=== PATIENT | male | born 1965 | race Caucasian/White ===

== ENCOUNTER → 2016-07-24 | Outpatient (CLI) | payer MEDICARE ==
[~2016-07-24] MED LIST: /PANT40TA; CEFT500T; CEPH500C PO; DICL500C PO; IBUPOTC PO; METF1000 PO; MICR8CAP PO; OMEP20CA3 PO; PERC5TAB6 PO; PRAV20TA2 PO; VICO5TAB; aleve
[2016-07-24 09:09] LABS: ALBUMIN 4.1 GM/DL (3.2-5.2); ALBUMIN/GLOBULIN RATIO 1.52 (1.00-1.93); ALKALINE PHOSPHATASE 51 U/L (45-117); ALT/SGPT 26 U/L (12-78); ANION GAP 5 MEQ/L (8-16); AST/SGOT 11 U/L (15-37); BILIRUBIN,TOTAL 0.4 MG/DL (0.2-1.0); BLOOD UREA NITROGEN 12 MG/DL (7-18); CALCIUM LEVEL 8.8 MG/DL (8.5-10.1); CARBON DIOXIDE LEVEL 29 MEQ/L (21-32); CHLORIDE LEVEL 107 MEQ/L (98-107); CHOLESTEROL LEVEL 163 MG/DL (<200); CREATININE FOR GFR 0.82 MG/DL (0.70-1.30); GLOMERULAR FILTRATION RATE > 60.0 (>56); GLUCOSE, FASTING 147 MG/DL (70-105); POTASSIUM SERUM 4.8 MEQ/L (3.5-5.1); SODIUM LEVEL 141 MEQ/L (136-145); TOTAL PROTEIN 6.8 GM/DL (6.4-8.2); TRIGLYCERIDES LEVEL 115 MG/DL (<150)
[2016-07-24 09:37] LABS: MEAN CORPUSCULAR VOLUME 91.2 fl (80.0-96.0); RED CELL DISTRIBUTION WIDTH 12.7 % (11.5-14.5); WHITE BLOOD COUNT 6.1 K/mm3 (4.0-10.0)
--- NOTE | 2016-07-25 21:51 | ECGEPIP ---
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
--- NOTE | 2016-07-29 10:14 | REP ---
Clinical: Anemia . Comparison: 10/24/2015 . Technique: PA and lateral. Findings: The mediastinum and cardiac silhouette are normal. The lung cordero are clear and without acute consolidation, effusion, or pneumothorax. The skeletal structures are intact and normal. Impression: 1. No acute cardiopulmonary process. Signed by Young Lora MD 07/29/2016 10:05 A
== END ==
LOC: M LAB 07:42
PROVIDERS: ATTEND Family Medicine
DX: J44.9 Chronic obstructive pulmonary disease, unspecified (principal); R53.83 Other fatigue; E11.9 Type 2 diabetes mellitus without complications; I45.9 Conduction disorder, unspecified

== ENCOUNTER → 2016-09-02 | Outpatient (CLI) | payer MEDICARE ==
[2016-09-02 08:42] LABS: BASO # 0.1 K/mm3 (0.0-0.2); EOS # 0.1 K/mm3 (0.0-0.50); LARGE UNSTAINED CELL # 0.2 K/mm3 (0.0-0.4); LARGE UNSTAINED CELL % 2.3 % (0.0-4.0); MEAN CORPUSCULAR HEMOGLOBIN 30.8 pg (27.0-33.0); MEAN CORPUSCULAR HGB CONC 32.9 g/dl (32.0-36.5); MEAN CORPUSCULAR VOLUME 93.6 fl (80.0-96.0); MONO # 0.4 K/mm3 (0.0-0.8); NEUTROPHILS # 3.7 K/mm3 (1.8-7.7); NEUTROPHILS % 58.7 % (36.0-66.0); PLATELET COUNT, AUTOMATED 168 k/mm3 (150-450); WHITE BLOOD COUNT 6.3 K/mm3 (4.0-10.0)
[2016-09-02 09:17] LABS: ANION GAP 6 MEQ/L (8-16); BLOOD UREA NITROGEN 14 MG/DL (7-18); CALCIUM LEVEL 8.9 MG/DL (8.5-10.1); CARBON DIOXIDE LEVEL 30 MEQ/L (21-32); CHLORIDE LEVEL 105 MEQ/L (98-107); CREATININE FOR GFR 0.82 MG/DL (0.70-1.30); GLOMERULAR FILTRATION RATE > 60.0 (>56); GLUCOSE, FASTING 160 MG/DL (70-105); POTASSIUM SERUM 4.5 MEQ/L (3.5-5.1); SODIUM LEVEL 141 MEQ/L (136-145)
[2016-09-02 09:32] LABS: INR 0.93
== END ==
LOC: M LAB 07:45
PROVIDERS: ATTEND Surgery Vascular Surgery
DX: Z01.818 Encounter for other preprocedural examination (principal); D69.8 Other specified hemorrhagic conditions

== ENCOUNTER → 2016-09-11 | Outpatient (REF) | payer MEDICARE ==
[2016-09-11 13:29] LABS: BLOOD UREA NITROGEN 13 MG/DL (7-18); CREATININE FOR GFR 0.89 MG/DL (0.70-1.30); GLOMERULAR FILTRATION RATE > 60.0 (>56)
== END ==
LOC: M LABDRWAD 12:24
PROVIDERS: ATTEND Surgery Vascular Surgery
DX: Z01.818 Encounter for other preprocedural examination (principal)

== ENCOUNTER → 2017-02-26 | Outpatient (REF) | payer MEDICARE ==
[~2017-02-26] MED LIST changes: -METF1000 PO; +METF10004 PO; +PERC5TAB12 PO; -PERC5TAB6 PO
[2017-02-26 13:46] LABS: MEAN CORPUSCULAR HEMOGLOBIN 30.4 pg (27.0-33.0); PLATELET COUNT, AUTOMATED 171 10^3/uL (150-450); RED CELL DISTRIBUTION WIDTH 13.4 % (11.5-14.5); WHITE BLOOD COUNT 6.6 10^3/uL (4.0-10.0)
[2017-02-26 14:23] LABS: ALKALINE PHOSPHATASE 54 U/L (45-117); ALT/SGPT 25 U/L (12-78); ANION GAP 8 MEQ/L (8-16); AST/SGOT 14 U/L (15-37); BLOOD UREA NITROGEN 9 MG/DL (7-18); CALCIUM LEVEL 9.1 MG/DL (8.5-10.1); CARBON DIOXIDE LEVEL 28 MEQ/L (21-32); CHLORIDE LEVEL 105 MEQ/L (98-107); CREATININE FOR GFR 0.83 MG/DL (0.70-1.30); GLOMERULAR FILTRATION RATE > 60.0 (>56); GLUCOSE, FASTING 157 MG/DL (70-105); POTASSIUM SERUM 4.6 MEQ/L (3.5-5.1); SODIUM LEVEL 141 MEQ/L (136-145)
[2017-02-26 14:24] LABS: ALBUMIN 4.3 GM/DL (3.2-5.2); ALBUMIN/GLOBULIN RATIO 1.54 (1.00-1.93); BILIRUBIN,TOTAL 0.5 MG/DL (0.2-1.0); CHOLESTEROL LEVEL 156 MG/DL (<200); TOTAL PROTEIN 7.1 GM/DL (6.4-8.2); TRIGLYCERIDES LEVEL 131 MG/DL (<150)
== END ==
LOC: M LABDRWAD 12:16
PROVIDERS: ATTEND Family Medicine
DX: I10 Essential (primary) hypertension (principal); E11.9 Type 2 diabetes mellitus without complications; R53.83 Other fatigue; Z79.899 Other long term (current) drug therapy; E55.9 Vitamin D deficiency, unspecified

== ENCOUNTER 2017-12-12 17:02 | Observation (INO) | payer MEDICARE ==
[2017-12-12] MEDS: ASPIRIN 81 MG CHEW TABLET PO ×2 (19:15)
[2017-12-12 19:30] LABS: HEMATOCRIT 34.3 % (42.0-52.0); HEMOGLOBIN 12.3 g/dl (13.5-17.5); MEAN CORPUSCULAR HEMOGLOBIN 32.4 pg (27.0-33.0); MEAN CORPUSCULAR HGB CONC 35.9 g/dl (32.0-36.5); MEAN CORPUSCULAR VOLUME 90.3 fl (80.0-96.0); PLATELET COUNT, AUTOMATED 150 10^3/uL (150-450); RED CELL DISTRIBUTION WIDTH 11.9 % (11.5-14.5); WHITE BLOOD COUNT 7.4 10^3/uL (4.0-10.0)
[2017-12-12 19:54] LABS: ANION GAP 7 MEQ/L (8-16); BLOOD UREA NITROGEN 12 MG/DL (7-18); CALCIUM LEVEL 8.3 MG/DL (8.5-10.1); CARBON DIOXIDE LEVEL 26 MEQ/L (21-32); CHLORIDE LEVEL 103 MEQ/L (98-107); CREATININE FOR GFR 0.97 MG/DL (0.70-1.30); GLOMERULAR FILTRATION RATE > 60.0 (>56); GLUCOSE, FASTING 131 MG/DL (70-100); POTASSIUM SERUM 4.2 MEQ/L (3.5-5.1); SODIUM LEVEL 136 MEQ/L (136-145)
[2017-12-12] MEDS: HumaLOG INSULIN (NovoLOG) PER UNIT SC (21:00)
[2017-12-12] MEDS ORDERED: IPRATROPIUM 0.5MG/ALBUTEROL 2.5MG INH SOL UD 3ML (DUONEB)(J7620) NEB (21:15)
[2017-12-12] MEDS ORDERED: DEXTROSE 50% 50 ML SYRINGE IV (21:30)
[2017-12-12] MEDS ORDERED: GLUCAGON FOR INJ 1 MG VIAL (J1610) SC (21:30)
[2017-12-12] MEDS ORDERED: GLUCOSE 4 GM CHEW TABLET PO (21:30)
[2017-12-13 00:47] LABS: BEDSIDE GLUCOSE 208 MG/DL (70-105)
[2017-12-13] MEDS: HumaLOG INSULIN (NovoLOG) PER UNIT SC (08:25)
[2017-12-13] MEDS: MULTIVITAMINS/MINERALS THERAP 1 TAB PO (08:25)
[2017-12-13] MEDS: ASPIRIN 81 MG ENTERIC TAB PO (08:25)
[2017-12-13] MEDS: OMEPRAZOLE 20 MG CAP PO (08:26)
[2017-12-13] MEDS: ENOXAPARIN 40 MG/0.4 ML SYRINGE (J1650) SC (08:26)
[2017-12-13] MEDS ORDERED: PRAVASTATIN 20 MG TAB PO (18:00)
== END 2017-12-13 10:50 | disposition home or self-care (01) ==
LOC: M ED 17:02 → M ED INP 21:10 → M PCU 22:56
DX: M21.332 Wrist drop, left wrist (principal); R53.1 Weakness; G56.32 Lesion of radial nerve, left upper limb; E11.9 Type 2 diabetes mellitus without complications; E78.4 Other hyperlipidemia; Z79.82 Long term (current) use of aspirin; I73.9 Peripheral vascular disease, unspecified; K21.9 Gastro-esophageal reflux disease without esophagitis; Z95.820 Peripheral vascular angioplasty status with implants and grafts; Z79.899 Other long term (current) drug therapy; Z79.84 Long term (current) use of oral hypoglycemic drugs
CPT/HCPCS: 70551

== ENCOUNTER → 2018-02-28 | Outpatient (CLI) | payer MEDICARE ==
[2018-02-28 13:34] LABS: HEMATOCRIT 44.4 % (42.0-52.0); HEMOGLOBIN 14.9 g/dl (13.5-17.5); MEAN CORPUSCULAR HGB CONC 33.6 g/dl (32.0-36.5); MEAN CORPUSCULAR VOLUME 92.5 fl (80.0-96.0); PLATELET COUNT, AUTOMATED 162 10^3/uL (150-450); RED CELL DISTRIBUTION WIDTH 12.3 % (11.5-14.5); WHITE BLOOD COUNT 6.9 10^3/uL (4.0-10.0)
[2018-02-28 13:52] LABS: ALBUMIN 4.1 GM/DL (3.2-5.2); ALBUMIN/GLOBULIN RATIO 1.28 (1.00-1.93); ALKALINE PHOSPHATASE 57 U/L (45-117); ALT/SGPT 24 U/L (12-78); ANION GAP 9 MEQ/L (8-16); AST/SGOT 21 U/L (7-37); BILIRUBIN,TOTAL 0.4 MG/DL (0.2-1.0); BLOOD UREA NITROGEN 12 MG/DL (7-18); CARBON DIOXIDE LEVEL 27 MEQ/L (21-32); CHLORIDE LEVEL 105 MEQ/L (98-107); CHOLESTEROL LEVEL 159 MG/DL (<200); CHOLESTEROL RISK RATIO 4.542 (<5); CREATININE FOR GFR 0.92 MG/DL (0.70-1.30); GLOMERULAR FILTRATION RATE > 60.0 (>56); GLUCOSE, FASTING 167 MG/DL (70-100); HDL CHOLESTEROL 35 MG/DL (>40); LDL CHOLESTEROL 74 MG/DL (<100); NON-HDL-C 124 MG/DL; POTASSIUM SERUM 4.7 MEQ/L (3.5-5.1); SODIUM LEVEL 141 MEQ/L (136-145); TOTAL PROTEIN 7.3 GM/DL (6.4-8.2); TRIGLYCERIDES LEVEL 252 MG/DL (<150)
[2018-02-28 14:04] LABS: ESTIMATED AVERAGE GLUCOSE 240 MG/DL (60-110)
[2018-03-02 10:01] LABS: TESTOSTERONE 473 NG/DL (241-827); TOTAL 25(OH) VITAMIN D 20.8 NG/ML (30.0-100.0)
== END ==
LOC: M LABDRWAD 08:39
DX: I10 Essential (primary) hypertension (principal); E11.9 Type 2 diabetes mellitus without complications; E03.9 Hypothyroidism, unspecified; E29.1 Testicular hypofunction
CPT/HCPCS: 84403

== ENCOUNTER → 2019-07-09 | Outpatient (CLI) | payer MEDICARE ==
[~2019-07-09] MED LIST changes: -/PANT40TA; +ASPI81TA85 PO; +CENTCHW4 PO; +OMEP1CAP73 PO; -OMEP20CA3 PO; +PROT1TAB2; +VITMTA PO
--- NOTE | 2019-07-09 10:20 | REP ---
LUMBOSACRAL SPINE: Five views of the lumbosacral spine performed. There is no compression fracture or malalignment with normal lumbar lordosis. There is moderate diffuse spurring. There is mild disc space narrowing and subchondral sclerosis at L3-4 and L4-5, with mild vacuum phenomenon at L4-5. There is sclerosis and spurring at the posterior facet joints diffusely, most significantly at L4-5 and L5-S1. Posterior elements are intact. There are diffuse vascular calcifications. IMPRESSION: Diffuse degenerative changes as above most significantly at L4-5 level. Electronically Signed by Klaus Aparicio MD 07/13/2019 03:20 P
== END ==
LOC: M RAD 08:01
PROVIDERS: ATTEND Family Medicine
DX: M54.5 Low back pain (principal)

== ENCOUNTER 2020-01-03 20:17 | Emergency (ER) | payer MEDICARE ==
[~2020-01-03] VITALS: Ht 195.6 cm; Wt 112.7 kg
[~2020-01-03 20:17] MED LIST changes: -ASPI81TA85 PO; +ASPI81TA86 PO
[2020-01-03] MEDS ORDERED: INSUHUMDS SC (20:33)
[2020-01-03] MEDS ORDERED: NOXI1TAB PO (20:33)
[2020-01-03] MEDS ORDERED: LANTINJ4 (20:33)
[2020-01-03 22:35] LABS: BASO % 0.3 % (0.0-1.0); EOS # 0.1 10^3/uL (0.0-0.5); EOS % 0.7 % (0.0-3.0); HEMATOCRIT 38.9 % (42.0-52.0); HEMOGLOBIN 13.6 g/dl (13.5-17.5); LYMPH # 1.3 10^3/uL (1.5-5.0); LYMPH % 15.3 % (24.0-44.0); MEAN CORPUSCULAR HEMOGLOBIN 31.6 pg (27.0-33.0); MEAN CORPUSCULAR VOLUME 90.5 fl (80.0-96.0); MONO # 0.7 10^3/uL (0.0-0.8); MONO % 8.6 % (0.0-5.0); NEUTROPHILS # 6.5 10^3/uL (1.5-8.5); NEUTROPHILS % 74.6 % (36.0-66.0); PLATELET COUNT, AUTOMATED 178 10^3/uL (150-450); WHITE BLOOD COUNT 8.7 10^3/uL (4.0-10.0)
[2020-01-03 22:47] LABS: ALBUMIN 3.8 GM/DL (3.2-5.2); ALT/SGPT 31 U/L (12-78); BILIRUBIN,DIRECT 0.2 MG/DL (0.0-0.2); BILIRUBIN,TOTAL 0.5 MG/DL (0.2-1.0); BLOOD UREA NITROGEN 12 MG/DL (7-18); CALCIUM LEVEL 8.9 MG/DL (8.5-10.1); CARBON DIOXIDE LEVEL 29 MEQ/L (21-32); CHLORIDE LEVEL 99 MEQ/L (98-107); GLOMERULAR FILTRATION RATE > 60.0 (>56); GLUCOSE, FASTING 158 MG/DL (70-100); LIPASE 245 U/L (73-393); POTASSIUM SERUM 4.3 MEQ/L (3.5-5.1); SODIUM LEVEL 132 MEQ/L (136-145); TOTAL PROTEIN 7.1 GM/DL (6.4-8.2)
[2020-01-03] MEDS ORDERED: FLEET OIL RETENTION ENEMA PR STA (23:10)
[2020-01-03] MEDS ORDERED: GASTROGRAFIN SOLUTION 30ML (Q9963) As Ordered ONE (23:43)
[2020-01-03] MEDS: GASTROGRAFIN SOLUTION 30ML PO SCH (23:56)
[2020-01-04] MEDS: GASTROGRAFIN SOLUTION 30ML PO SCH (00:22)
[2020-01-04] MEDS ORDERED: ISOVUE-370 76% 100ML VIAL As Ordered ONE (00:49)
--- NOTE | 2020-01-04 01:53 | REPVR ---
PROCEDURE INFORMATION: Exam: CT Abdomen And Pelvis With Contrast Exam date and time: 01/03/2020 11:16 PM Age: 54 years old Clinical indication: Abdominal pain; Generalized; Patient HX: No bm 7 days; Additional info: No bm x 7 days, lower abd pain TECHNIQUE: Imaging protocol: Computed tomography of the abdomen and pelvis with intravenous contrast. Radiation optimization: All CT scans at this facility use at least one of these dose optimization techniques: automated exposure control; mA and/or kV adjustment per patient size (includes targeted exams where dose is matched to clinical indication); or iterative reconstruction. Contrast material: ISO; Contrast volume: 100 ml; Contrast route: INTRAVENOUS (IV); Other contrast: Oral, GGRAPHIN, 600; COMPARISON: CR Abdomen,Flat Plate KUB 01/03/2020 8:45 PM FINDINGS: Lungs: Reticular fibrotic changes are present in the lung bases in subpleural location Liver: Liver appears normal with no focal abnormality. Gallbladder and bile ducts: Gallbladder is present and shows no evidence of gallstone. Pancreas: Pancreas appears normal. No focal mass or peripancreatic inflammation. Spleen: Spleen appears homogeneous without focal mass. Adrenals: Adrenal glands are normal in appearance. Kidneys and ureters: Kidneys appear normal, with no stone, solid mass or hydronephrosis. 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 No evidence of small bowel obstruction. Large volume of colonic stool is seen diffusely, distending the colon up to 7 cm diameter. Axial image [id number] suggests an annular lesion within the distal descending colon which may be partially obstructing. This corresponds also 2 sagittal image 76-80 which shows the same area of concern. Appendix: Normal caliber appendix is identified, with no adjacent inflammation. Intraperitoneal space: No pneumoperitoneum. Vasculature: Atherosclerotic change present in the aorta, without aneurysm. Main portal and splenic veins enhance normally. Lymph nodes: No enlarged lymph nodes. Bladder: Urinary bladder appears normal. Reproductive: No overt enlargement of the prostate gland. Bones/joints: Bony structures are normal except for lumbar spine degenerative disc changes. Soft tissues: Unremarkable. IMPRESSION: Large volume of desiccated colonic stool distending the colon to 7 cm diameter. Concern for a distal descending colon annular partially obstructing lesion. Image numbers are given in the body of the report Electronically signed by: Raza Huffman On 01/04/2020 01:53:21 AM
[2020-01-04] MEDS ORDERED: SIMETHICONE 80 MG CHEW TAB PO STA (02:27)
[2020-01-04 02:29] VITALS: BP 132/66
[2020-01-04] MEDS ORDERED: SIME180C PO (02:29)
[2020-01-04] MEDS ORDERED: GOLYTELY SOLN 4000 ML BTL PO ONE (02:30)
[2020-01-04] MEDS: FLEET OIL RETENTION ENEMA PR PRN ×2 (02:34→02:38)
--- NOTE | 2020-01-04 19:49 | ED PDOC ---
Post-Departure Follow-Up shayy landaverde and abner faxed formal report of ct abd/p for fu Mallorie Nevarez MD Jan 04, 2020 19:49
--- NOTE | 2020-01-31 15:52 | REP ---
ABDOMINAL RADIOGRAPHS CLINICAL: Abdominal pain with decreased bowel sounds. TECHNIQUE: Two supine views of the abdomen and pelvis. FINDINGS: The bowel gas pattern demonstrates moderately distended air filled loops of small and large bowel along with presumed fecal stasis through the transverse and descending colon to sigmoid. Differential diagnosis includes ileus, as well as early/partial small bowel obstruction. No obvious free air. No organomegaly. Skeletal structures are intact. Vascular calcifications noted. IMPRESSION: Findings described above suggest ileus as well as possible constipation and less likely early obstruction. MTDD
== END 2020-01-04 02:43 | disposition home or self-care (01) ==
LOC: M ED 20:17
DX: K59.00 Constipation, unspecified (principal); E11.9 Type 2 diabetes mellitus without complications; I10 Essential (primary) hypertension; E78.5 Hyperlipidemia, unspecified; N40.0 Benign prostatic hyperplasia without lower urinary tract symptoms; Z98.84 Bariatric surgery status; Z79.4 Long term (current) use of insulin; Z79.82 Long term (current) use of aspirin; Z79.899 Other long term (current) drug therapy
CPT/HCPCS: 74018; 74177; 80048; 80076; 83690; 85025; 99283; Q9967

== ENCOUNTER → 2020-01-15 | Outpatient (CLI) | payer MEDICARE ==
[~2020-01-15] MED LIST changes: +INSUHUMDS SC; +LANTINJ4; +NOXI1TAB PO; +SIME180C PO
== END ==
LOC: M LABSMTC 11:55
PROVIDERS: ATTEND Anesthesiology
DX: Z01.818 Encounter for other preprocedural examination (principal); Z11.59 Encounter for screening for other viral diseases; Z20.828 Contact with and (suspected) exposure to other viral communicable diseases
CPT/HCPCS: C9803; U0003

== ENCOUNTER 2020-01-20 08:47 | Day surgery (SDC) | payer MEDICARE ==
[~2020-01-20] VITALS: Ht 195.6 cm; Wt 106.1 kg
[~2020-01-20 08:47] MED LIST changes: +NS 1,000 ML IV ONE
[2020-01-20] MEDS ORDERED: propofoL 200 MG/20 ML VIAL As Ordered ONE ×2 (09:48→09:57)
--- NOTE | 2020-01-20 10:07 | ROOR ---
Patient Name: Klaus Jiang Procedure Date: 01/20/2020 9:36 AM Date of : 1965 Age: 54 Room: [facility] Gender: Male Note Status: Finalized Procedure: Colonoscopy Indications: Abnormal CT of the GI tract, Constipation Providers: Kumar Bowens Jr, MD Referring MD: SHEN NOONAN MD Requesting Provider: Medicines: Propofol per Anesthesia Complications: No immediate complications. Procedure: Pre-Anesthesia Assessment: - Prior to the procedure, a History and Physical was performed, and patient medications and allergies were reviewed. The patient is competent. The risks and benefits of the procedure and the sedation options and risks were discussed with the patient. All questions were answered and informed consent was obtained. Patient identification and proposed procedure were verified by the physician and the nurse in the pre-procedure area and in the procedure room. Mental Status Examination: alert and oriented. Airway Examination: normal oropharyngeal airway and neck mobility. Respiratory Examination: clear to auscultation. CV Examination: normal. ASA Grade Assessment: II - A patient with mild systemic disease. After reviewing the risks and benefits, the patient was deemed in satisfactory condition to undergo the procedure. The anesthesia plan was to use moderate sedation / analgesia (conscious sedation). Immediately prior to administration of medications, the patient was re-assessed for adequacy to receive sedatives. The heart rate, respiratory rate, oxygen saturations, blood pressure, adequacy of pulmonary ventilation, and response to care were monitored throughout the procedure. The physical status of the patient was re-assessed after the procedure. The Colonoscope was introduced through the anus and advanced to the cecum, identified by appendiceal orifice and ileocecal valve. The colonoscopy was performed without difficulty. The quality of the bowel preparation was adequate. Findings: The rectum, recto-sigmoid colon, sigmoid colon, descending colon, transverse colon, ascending colon, cecum, appendiceal orifice and ileocecal valve appeared normal. The sigmoid colon, descending colon and transverse colon were significantly redundant. Impression: - The rectum, recto-sigmoid colon, sigmoid colon, descending colon, transverse colon, ascending colon, cecum, appendiceal orifice and ileocecal valve are normal. - Redundant colon. - No specimens collected. Recommendation: - Discharge patient to home (ambulatory). - Repeat colonoscopy in 10 years for screening purposes. Kumar Bowens MD Kumar Bowens Jr, MD 01/20/2020 10:06:37 AM Electronically signed by Kumar Bowens Jr, MD Number of Addenda: 0 Note Initiated On: 01/20/2020 9:36 AM Estimated Blood Loss: Estimated blood loss: none.
[2020-01-20 10:40] VITALS: BP 96/52
== END 2020-01-20 10:42 | disposition home or self-care (01) ==
LOC: M OPP 08:47
PROVIDERS: ATTEND Surgery
DX: K59.00 Constipation, unspecified (principal); Q43.8 Other specified congenital malformations of intestine; R93.3 Abnormal findings on diagnostic imaging of other parts of digestive tract; E10.9 Type 1 diabetes mellitus without complications; F17.210 Nicotine dependence, cigarettes, uncomplicated; Z79.82 Long term (current) use of aspirin; Z79.84 Long term (current) use of oral hypoglycemic drugs; Z79.899 Other long term (current) drug therapy

== ENCOUNTER → 2020-02-04 | Outpatient (REF) | payer MEDICARE ==
[~2020-02-04] MED LIST changes: -NS 1,000 ML IV ONE
[2020-02-04 13:06] LABS: BASO % 0.6 % (0.0-1.0); EOS # 0.1 10^3/uL (0.0-0.5); EOS % 1.9 % (0.0-3.0); HEMATOCRIT 41.6 % (42.0-52.0); LYMPH % 31.8 % (24.0-44.0); MEAN CORPUSCULAR HEMOGLOBIN 31.4 pg (27.0-33.0); MEAN CORPUSCULAR HGB CONC 33.7 g/dl (32.0-36.5); MEAN CORPUSCULAR VOLUME 93.3 fl (80.0-96.0); MONO # 0.7 10^3/uL (0.0-0.8); MONO % 10.6 % (0.0-5.0); NEUTROPHILS # 3.4 10^3/uL (1.5-8.5); NEUTROPHILS % 54.9 % (36.0-66.0); PLATELET COUNT, AUTOMATED 190 10^3/uL (150-450); RED BLOOD COUNT 4.46 10^6/uL (4.30-6.10); WHITE BLOOD COUNT 6.2 10^3/uL (4.0-10.0)
[2020-02-04 13:39] LABS: BLOOD UREA NITROGEN 9 MG/DL (7-18); CALCIUM LEVEL 9.7 MG/DL (8.5-10.1); CARBON DIOXIDE LEVEL 27 MEQ/L (21-32); CHLORIDE LEVEL 103 MEQ/L (98-107); CREATININE FOR GFR 0.79 MG/DL (0.70-1.30); GLOMERULAR FILTRATION RATE > 60.0 (>56); GLUCOSE, FASTING 91 MG/DL (70-100); POTASSIUM SERUM 4.7 MEQ/L (3.5-5.1); SODIUM LEVEL 137 MEQ/L (136-145)
== END ==
LOC: M LABDRWAD 12:26
PROVIDERS: ATTEND Surgery Vascular Surgery
DX: I70.211 Atherosclerosis of native arteries of extremities with intermittent claudication, right leg (principal)

== ENCOUNTER → 2020-02-07 | Outpatient (REF) | payer MEDICARE ==
[2020-02-07 13:00] LABS: INR 1.02; PROTHROMBIN TIME 13.6 SECONDS (12.5-14.3)
[2020-02-07 13:01] LABS: PARTIAL THROMBOPLASTIN TIME 28.7 SECONDS (24.2-38.5)
== END ==
LOC: M LABDRWAD 12:35
PROVIDERS: ATTEND Surgery Vascular Surgery
DX: I70.211 Atherosclerosis of native arteries of extremities with intermittent claudication, right leg (principal); M79.606 Pain in leg, unspecified

== ENCOUNTER → 2020-07-05 | Outpatient (REF) | payer MEDICARE ==
[2020-07-05 13:40] LABS: HEMATOCRIT 39.6 % (42.0-52.0); HEMOGLOBIN 13.2 g/dl (13.5-17.5); MEAN CORPUSCULAR HEMOGLOBIN 30.8 pg (27.0-33.0); MEAN CORPUSCULAR HGB CONC 33.3 g/dl (32.0-36.5); MEAN CORPUSCULAR VOLUME 92.3 fl (80.0-96.0); PLATELET COUNT, AUTOMATED 174 10^3/uL (150-450); RED BLOOD COUNT 4.29 10^6/uL (4.30-6.10); WHITE BLOOD COUNT 5.4 10^3/uL (4.0-10.0)
[2020-07-05 13:50] LABS: ALT/SGPT 33 U/L (12-78); BILIRUBIN,TOTAL 0.3 MG/DL (0.2-1.0); BLOOD UREA NITROGEN 9 MG/DL (7-18); CALCIUM LEVEL 8.9 MG/DL (8.5-10.1); CARBON DIOXIDE LEVEL 29 MEQ/L (21-32); CHLORIDE LEVEL 101 MEQ/L (98-107); CHOLESTEROL LEVEL 186 MG/DL (<200); CHOLESTEROL RISK RATIO 3.957 (<5); CREATININE FOR GFR 0.78 MG/DL (0.70-1.30); GLOMERULAR FILTRATION RATE > 60.0 (>56); GLUCOSE, FASTING 107 MG/DL (70-100); HDL CHOLESTEROL 47 MG/DL (>40); LDL CHOLESTEROL 122 MG/DL (<100); NON-HDL-C 139 MG/DL; POTASSIUM SERUM 5.1 MEQ/L (3.5-5.1); PROSTATIC SPECIFIC AG MONITOR 0.26 NG/ML (< 4.00); SODIUM LEVEL 135 MEQ/L (136-145); TOTAL PROTEIN 6.8 GM/DL (6.4-8.2); TRIGLYCERIDES LEVEL 86 MG/DL (<150)
[2020-07-05 13:51] LABS: TESTOSTERONE 766 NG/DL (241-827)
[2020-07-05 15:26] LABS: HEMOGLOBIN A1c 6.5 %
== END ==
LOC: M LABDRWAD 12:55
PROVIDERS: ATTEND Family Medicine
DX: I10 Essential (primary) hypertension (principal); E11.9 Type 2 diabetes mellitus without complications; R53.83 Other fatigue; R97.20 Elevated prostate specific antigen [PSA]

== ENCOUNTER → 2021-07-02 | Outpatient (REF) | payer MEDICARE ==
[~2021-07-02] MED LIST changes: -SIME180C PO; +SIME180C25 PO
[2021-07-02 12:54] LABS: HEMATOCRIT 41.8 % (42.0-52.0); MEAN CORPUSCULAR HEMOGLOBIN 30.7 pg (27.0-33.0); MEAN CORPUSCULAR HGB CONC 33.5 g/dl (32.0-36.5); MEAN CORPUSCULAR VOLUME 91.7 fl (80.0-96.0); PLATELET COUNT, AUTOMATED 191 10^3/uL (150-450); RED BLOOD COUNT 4.56 10^6/uL (4.30-6.10); WHITE BLOOD COUNT 6.1 10^3/uL (4.0-10.0)
[2021-07-02 14:34] LABS: ALBUMIN 3.9 GM/DL (3.2-5.2); ALT/SGPT 29 U/L (12-78); BILIRUBIN,TOTAL 0.4 MG/DL (0.2-1.0); BLOOD UREA NITROGEN 10 MG/DL (7-18); CALCIUM LEVEL 9.6 MG/DL (8.5-10.1); CARBON DIOXIDE LEVEL 29 MEQ/L (21-32); CHLORIDE LEVEL 101 MEQ/L (98-107); CHOLESTEROL LEVEL 154 MG/DL (<200); CHOLESTEROL RISK RATIO 3.347 (<5); CREATININE FOR GFR 0.88 MG/DL (0.70-1.30); GLOMERULAR FILTRATION RATE > 60.0 (>56); GLUCOSE, FASTING 126 MG/DL (70-100); HDL CHOLESTEROL 46 MG/DL (>40); LDL CHOLESTEROL 88 MG/DL (<100); NON-HDL-C 108 MG/DL; POTASSIUM SERUM 4.9 MEQ/L (3.5-5.1); SODIUM LEVEL 135 MEQ/L (136-145); TESTOSTERONE 692 NG/DL (241-827); TRIGLYCERIDES LEVEL 99 MG/DL (<150)
[2021-07-02 18:10] LABS: HEMOGLOBIN A1c 6.5 %
== END ==
LOC: M LABDRWAD 12:31
PROVIDERS: ATTEND Family Medicine
DX: I10 Essential (primary) hypertension (principal); E11.9 Type 2 diabetes mellitus without complications; R53.83 Other fatigue; Z12.5 Encounter for screening for malignant neoplasm of prostate
CPT/HCPCS: 36415; 80053; 80061; 83036; 84403; 84443; 85027; G0103

== ENCOUNTER → 2021-08-03 | Outpatient (CLI) | payer MEDICARE ==
[2021-08-03 17:06] LABS: BASO % 0.5 % (0.0-1.0); EOS # 0.2 10^3/uL (0.0-0.5); EOS % 2.9 % (0.0-3.0); HEMATOCRIT 37.9 % (42.0-52.0); HEMOGLOBIN 12.9 g/dl (13.5-17.5); LYMPH # 2.4 10^3/uL (1.5-5.0); MEAN CORPUSCULAR VOLUME 91.1 fl (80.0-96.0); MONO # 0.6 10^3/uL (0.0-0.8); MONO % 9.5 % (2.0-8.0); NEUTROPHILS % 48.6 % (36.0-66.0); PLATELET COUNT, AUTOMATED 199 10^3/uL (150-450); RED BLOOD COUNT 4.16 10^6/uL (4.30-6.10); WHITE BLOOD COUNT 6.2 10^3/uL (4.0-10.0)
[2021-08-03 17:24] LABS: C REACTIVE PROTEIN QUANTITATIV < 0.30 MG/DL (0.00-0.30); RHEUMATOID FACTOR QUANT < 10.0 IU/ML (<15.0)
[2021-08-03 19:24] LABS: ERYTHROCYTE SEDIMENTATION RATE 10 mm/hr (0-20)
[2021-08-06 13:07] LABS: Lyme Disease IgG/IgM Antibodie <0.91 ISR (0.00-0.90); Lyme Disease IgM Ab Quantitati <0.80 index (0.00-0.79)
== END ==
LOC: M ADAMS 14:53
PROVIDERS: ATTEND Physician Assistant
DX: M25.561 Pain in right knee (principal)

== ENCOUNTER → 2022-02-28 | Outpatient (CLI) | payer MEDICARE ==
[2022-02-28 12:20] LABS: HEMATOCRIT 40.6 % (42.0-52.0); HEMOGLOBIN 13.8 g/dl (13.5-17.5); MEAN CORPUSCULAR HEMOGLOBIN 31.6 pg (27.0-33.0); MEAN CORPUSCULAR VOLUME 92.9 fl (80.0-96.0); PLATELET COUNT, AUTOMATED 209 10^3/uL (150-450); RED BLOOD COUNT 4.37 10^6/uL (4.30-6.10); WHITE BLOOD COUNT 6.5 10^3/uL (4.0-10.0)
[2022-02-28 12:51] LABS: HEMOGLOBIN A1c 6.7 %
[2022-02-28 13:12] LABS: ALBUMIN 4.2 GM/DL (3.2-5.2); ALT/SGPT 27 U/L (12-78); BILIRUBIN,TOTAL 0.4 MG/DL (0.2-1.0); BLOOD UREA NITROGEN 10 MG/DL (7-18); CALCIUM LEVEL 9.4 MG/DL (8.5-10.1); CARBON DIOXIDE LEVEL 28 MEQ/L (21-32); CHLORIDE LEVEL 101 MEQ/L (98-107); CHOLESTEROL LEVEL 162 MG/DL (<200); CHOLESTEROL RISK RATIO 3.521 (<5); CREATININE FOR GFR 0.86 MG/DL (0.70-1.30); GLOMERULAR FILTRATION RATE > 60.0 (>56); GLUCOSE, FASTING 146 MG/DL (70-100); HDL CHOLESTEROL 46 MG/DL (>40); LDL CHOLESTEROL 96 MG/DL (<100); NON-HDL-C 116 MG/DL; PROSTATIC SPECIFIC AG MONITOR 0.26 NG/ML (< 4.00); SODIUM LEVEL 133 MEQ/L (136-145); TOTAL PROTEIN 7.7 GM/DL (6.4-8.2); TRIGLYCERIDES LEVEL 102 MG/DL (<150)
[2022-02-28 13:36] LABS: TESTOSTERONE 628 NG/DL (241-827)
== END ==
LOC: M LABDRWAD 07:49
PROVIDERS: ATTEND Family Medicine
DX: I10 Essential (primary) hypertension (principal); E11.9 Type 2 diabetes mellitus without complications; R53.83 Other fatigue; R97.20 Elevated prostate specific antigen [PSA]

== ENCOUNTER → 2022-07-24 | Outpatient (CLI) | payer MEDICARE ==
[2022-07-24 13:31] LABS: HEMATOCRIT 38.7 % (42.0-52.0); MEAN CORPUSCULAR HGB CONC 33.6 g/dl (32.0-36.5); MEAN CORPUSCULAR VOLUME 92.1 fl (80.0-96.0); PLATELET COUNT, AUTOMATED 216 10^3/uL (150-450); WHITE BLOOD COUNT 6.7 10^3/uL (4.0-10.0)
[2022-07-24 13:53] LABS: HEMOGLOBIN A1c 8.4 % (4.0-6.0)
[2022-07-24 14:10] LABS: ALBUMIN 4.1 G/DL (3.2-5.2); ALKALINE PHOSPHATASE 54 U/L (46-116); ALT/SGPT 29 U/L (7.0-40); AST/SGOT 24 U/L (<34); BILIRUBIN,TOTAL 0.5 MG/DL (0.3-1.2); BLOOD UREA NITROGEN 11 MG/DL (9-23); CALCIUM LEVEL 9.2 MG/DL (8.5-10.1); CARBON DIOXIDE LEVEL 28 MMOL/L (20-31); CHLORIDE LEVEL 101 MMOL/L (98-107); CHOLESTEROL LEVEL 182 MG/DL (<200); CHOLESTEROL RISK RATIO 3.66 (<5); CREATININE FOR GFR 0.75 MG/DL (0.70-1.30); GLOMERULAR FILTRATION RATE > 60.0 (>56); GLUCOSE, FASTING 125 MG/DL (60-100); HDL CHOLESTEROL 49.6 MG/DL (>40); LDL CHOLESTEROL 110.6 MG/DL (<100); NON-HDL-C 132.4 MG/DL; POTASSIUM SERUM 4.8 MMOL/L (3.5-5.1); SODIUM LEVEL 138 MMOL/L (136-145); TOTAL PROTEIN 6.9 G/DL (5.7-8.2); TRIGLYCERIDES LEVEL 109 MG/DL (<150)
[2022-07-24 14:13] LABS: THYROID STIMULATING HORMONE 2.163 uIU/ML (0.55-4.78)
[2022-07-24 14:14] LABS: TESTOSTERONE 676 NG/DL (241-827)
== END ==
LOC: M LABDRWAD 07:45
PROVIDERS: ATTEND Family Medicine
DX: I10 Essential (primary) hypertension (principal); D64.9 Anemia, unspecified; E03.9 Hypothyroidism, unspecified; Z12.5 Encounter for screening for malignant neoplasm of prostate
CPT/HCPCS: 36415; 80053; 80061; 83036; 84403; 84443; 85027; G0103

== ENCOUNTER → 2023-05-29 | Outpatient (REF) | payer MEDICARE ==
[2023-05-29 14:32] LABS: HEMATOCRIT 35.7 % (42.0-52.0); HEMOGLOBIN 12.1 g/dl (13.5-17.5); MEAN CORPUSCULAR HEMOGLOBIN 31.1 pg (27.0-33.0); MEAN CORPUSCULAR HGB CONC 33.9 g/dl (32.0-36.5); MEAN CORPUSCULAR VOLUME 91.8 fl (80.0-96.0); PLATELET COUNT, AUTOMATED 177 10^3/uL (150-450); RED BLOOD COUNT 3.89 10^6/uL (4.30-6.10); WHITE BLOOD COUNT 4.8 10^3/uL (4.0-10.0)
[2023-05-29 14:35] LABS: PROSTATIC SPECIFIC AG MONITOR 0.17 NG/ML (< 4.00)
[2023-05-29 14:39] LABS: TOTAL 25(OH) VITAMIN D 80.4 NG/ML (20.0-100.0)
[2023-05-29 14:40] LABS: ALBUMIN 3.9 G/DL (3.2-5.2); ALKALINE PHOSPHATASE 51 U/L (46-116); ALT/SGPT 24 U/L (7.0-40); AST/SGOT 26 U/L (<34); BILIRUBIN,TOTAL 0.5 MG/DL (0.3-1.2); BLOOD UREA NITROGEN 14 MG/DL (9-23); CALCIUM LEVEL 9.3 MG/DL (8.5-10.1); CARBON DIOXIDE LEVEL 28 MMOL/L (20-31); CHLORIDE LEVEL 105 MMOL/L (98-107); CHOLESTEROL LEVEL 161 MG/DL (<200); CHOLESTEROL RISK RATIO 3.59 (<5); CREATININE FOR GFR 0.76 MG/DL (0.70-1.30); GLOMERULAR FILTRATION RATE > 60.0 (>56); GLUCOSE, FASTING 154 MG/DL (60-100); HDL CHOLESTEROL 44.8 MG/DL (>40); LDL CHOLESTEROL 94.8 MG/DL (<100); NON-HDL-C 116.2 MG/DL; POTASSIUM SERUM 4.4 MMOL/L (3.5-5.1); SODIUM LEVEL 139 MMOL/L (136-145); THYROID STIMULATING HORMONE 2.237 uIU/ML (0.55-4.78); TOTAL PROTEIN 6.8 G/DL (5.7-8.2); TRIGLYCERIDES LEVEL 107 MG/DL (<150)
[2023-05-29 14:42] LABS: TESTOSTERONE 493 NG/DL (241-827)
[2023-05-29 15:26] LABS: HEMOGLOBIN A1c 7.4 % (4.0-6.0)
== END ==
LOC: M LABDRWAD 12:48
PROVIDERS: ATTEND Family Medicine
DX: I10 Essential (primary) hypertension (principal); R53.83 Other fatigue; E07.9 Disorder of thyroid, unspecified; R97.20 Elevated prostate specific antigen [PSA]

== ENCOUNTER → 2023-09-25 | Outpatient (REF) | payer MEDICARE ==
[2023-09-25 14:26] LABS: HEMATOCRIT 36.1 % (42.0-52.0); MEAN CORPUSCULAR HEMOGLOBIN 30.3 pg (27.0-33.0); MEAN CORPUSCULAR HGB CONC 33.2 g/dl (32.0-36.5); MEAN CORPUSCULAR VOLUME 91.2 fl (80.0-96.0); PLATELET COUNT, AUTOMATED 179 10^3/uL (150-450); RED BLOOD COUNT 3.96 10^6/uL (4.30-6.10); WHITE BLOOD COUNT 5.8 10^3/uL (4.0-10.0)
[2023-09-25 14:29] LABS: PSA SCREENING 0.19 NG/ML (< 4.00)
[2023-09-25 14:31] LABS: ALBUMIN 3.8 G/DL (3.2-5.2); ALKALINE PHOSPHATASE 52 U/L (46-116); ALT/SGPT 27 U/L (7.0-40); AST/SGOT 22 U/L (<34); BILIRUBIN,TOTAL 0.5 MG/DL (0.3-1.2); BLOOD UREA NITROGEN 11 MG/DL (9-23); CALCIUM LEVEL 9.2 MG/DL (8.5-10.1); CARBON DIOXIDE LEVEL 28 MMOL/L (20-31); CHLORIDE LEVEL 107 MMOL/L (98-107); CHOLESTEROL LEVEL 153 MG/DL (<200); CHOLESTEROL RISK RATIO 3.77 (<5); CREATININE FOR GFR 0.81 MG/DL (0.70-1.30); GLOMERULAR FILTRATION RATE > 60.0 (>56); GLUCOSE, FASTING 152 MG/DL (60-100); HDL CHOLESTEROL 40.5 MG/DL (>40); LDL CHOLESTEROL 89.1 MG/DL (<100); NON-HDL-C 112.5 MG/DL; POTASSIUM SERUM 4.7 MMOL/L (3.5-5.1); SODIUM LEVEL 138 MMOL/L (136-145); TOTAL PROTEIN 6.5 G/DL (5.7-8.2); TRIGLYCERIDES LEVEL 117 MG/DL (<150)
[2023-09-25 14:33] LABS: TESTOSTERONE 547 NG/DL (241-827); THYROID STIMULATING HORMONE 2.053 uIU/ML (0.55-4.78)
[2023-09-25 14:34] LABS: TOTAL 25(OH) VITAMIN D 76.1 NG/ML (20.0-100.0)
== END ==
LOC: M LABDRWAD 12:44
PROVIDERS: ATTEND Family Medicine
DX: I10 Essential (primary) hypertension (principal); R53.83 Other fatigue; E11.9 Type 2 diabetes mellitus without complications; Z12.5 Encounter for screening for malignant neoplasm of prostate
CPT/HCPCS: 36415; 80053; 80061; 82306; 83036; 84403; 84443; 85027; G0103

== ENCOUNTER → 2023-10-14 | Outpatient (CLI) | payer MEDICARE | LOC: M RAD 07:17 | PROVIDERS: ATTEND Family Medicine | DX: I10 Essential (primary) hypertension (principal) ==

== ENCOUNTER → 2023-12-02 | Outpatient (REF) | payer MEDICARE | LOC: M LABSMT 14:40 | PROVIDERS: ATTEND Urology | DX: Z12.5 Encounter for screening for malignant neoplasm of prostate (principal) ==

== ENCOUNTER → 2023-12-04 | Outpatient (CLI) | payer MEDICARE | LOC: M PLALAB 08:01 | PROVIDERS: ATTEND Urology | DX: Z12.5 Encounter for screening for malignant neoplasm of prostate (principal) | CPT/HCPCS: 36415; G0103 ==

== ENCOUNTER → 2023-12-30 | Outpatient (REF) | payer MEDICARE ==
[2023-12-30 13:22] LABS: HEMATOCRIT 36.5 % (42.0-52.0); HEMOGLOBIN 11.8 g/dl (13.5-17.5); MEAN CORPUSCULAR HEMOGLOBIN 29.5 pg (27.0-33.0); MEAN CORPUSCULAR HGB CONC 32.3 g/dl (32.0-36.5); MEAN CORPUSCULAR VOLUME 91.3 fl (80.0-96.0); PLATELET COUNT, AUTOMATED 185 10^3/uL (150-450); WHITE BLOOD COUNT 4.6 10^3/uL (4.0-10.0)
[2023-12-30 13:30] LABS: ALKALINE PHOSPHATASE 51 U/L (46-116); ALT/SGPT 25 U/L (7.0-40); AST/SGOT 22 U/L (<34); BILIRUBIN,TOTAL 0.4 MG/DL (0.3-1.2); BLOOD UREA NITROGEN 11 MG/DL (9-23); CALCIUM LEVEL 9.1 MG/DL (8.5-10.1); CARBON DIOXIDE LEVEL 28 MMOL/L (20-31); CHLORIDE LEVEL 106 MMOL/L (98-107); CHOLESTEROL LEVEL 167 MG/DL (<200); CREATININE FOR GFR 0.83 MG/DL (0.70-1.30); GLOMERULAR FILTRATION RATE > 60.0 (>56); GLUCOSE, FASTING 92 MG/DL (60-100); HDL CHOLESTEROL 42.8 MG/DL (>40); LDL CHOLESTEROL 101.2 MG/DL (<100); NON-HDL-C 124.2 MG/DL; POTASSIUM SERUM 4.4 MMOL/L (3.5-5.1); PROSTATIC SPECIFIC AG MONITOR 0.24 NG/ML (< 4.00); SODIUM LEVEL 138 MMOL/L (136-145); TOTAL PROTEIN 7.1 G/DL (5.7-8.2); TRIGLYCERIDES LEVEL 115 MG/DL (<150)
[2023-12-30 13:31] LABS: THYROID STIMULATING HORMONE 2.148 uIU/ML (0.55-4.78)
[2023-12-30 13:32] LABS: TESTOSTERONE 404 NG/DL (241-827)
[2023-12-30 13:49] LABS: HEMOGLOBIN A1c 7.4 % (4.0-6.0)
== END ==
LOC: M LABDRWAD 12:30
PROVIDERS: ATTEND Family Medicine
DX: I10 Essential (primary) hypertension (principal); R53.83 Other fatigue; E11.9 Type 2 diabetes mellitus without complications; R97.20 Elevated prostate specific antigen [PSA]

== ENCOUNTER → 2024-02-18 | Outpatient (CLI) | payer MEDICARE ==
[~2024-02-18] MED LIST changes: +ISOVUE-370 76% 100ML VIAL As Ordered ONE; -SIME180C25 PO; +SIME1CAP4 PO
== END ==
LOC: M RAD 07:41
PROVIDERS: ATTEND Surgery Vascular Surgery
DX: I70.612 Atherosclerosis of nonbiological bypass graft(s) of the extremities with intermittent claudication, left leg (principal)
CPT/HCPCS: 75635; Q9967

== ENCOUNTER → 2024-03-19 | Outpatient (CLI) | payer MEDICARE ==
[~2024-03-19] MED LIST changes: -ISOVUE-370 76% 100ML VIAL As Ordered ONE
[2024-03-23 14:30] LABS: LYME TOTAL ANTIBODY CIA <= 0.90 Index (<=0.90)
== END ==
LOC: M WUC 10:13
PROVIDERS: ATTEND Physician Assistant
DX: J20.9 Acute bronchitis, unspecified (principal)

== ENCOUNTER → 2024-03-22 | Outpatient (REF) | payer MEDICARE ==
[2024-03-22 12:37] LABS: BASO # 0.1 10^3/uL (0.0-0.2); BASO % 0.9 % (0.0-1.0); EOS # 0.8 10^3/uL (0.0-0.5); EOS % 11.5 % (0.0-3.0); HEMATOCRIT 37.1 % (42.0-52.0); HEMOGLOBIN 12.6 g/dl (13.5-17.5); LYMPH # 1.6 10^3/uL (1.5-5.0); MEAN CORPUSCULAR HEMOGLOBIN 30.4 pg (27.0-33.0); MEAN CORPUSCULAR VOLUME 89.6 fl (80.0-96.0); MONO # 0.8 10^3/uL (0.0-0.8); MONO % 11.2 % (2.0-8.0); NEUTROPHILS # 3.6 10^3/uL (1.5-8.5); NEUTROPHILS % 53.1 % (36.0-66.0); PLATELET COUNT, AUTOMATED 217 10^3/uL (150-450); RED BLOOD COUNT 4.14 10^6/uL (4.30-6.10); WHITE BLOOD COUNT 6.8 10^3/uL (4.0-10.0)
[2024-03-22 12:50] LABS: INR 0.98; PARTIAL THROMBOPLASTIN TIME 26.2 SECONDS (24.8-34.2); PROTHROMBIN TIME 13.3 SECONDS (12.5-14.5)
[2024-03-22 12:51] LABS: BLOOD UREA NITROGEN 10 MG/DL (9-23); CALCIUM LEVEL 9.6 MG/DL (8.5-10.1); CARBON DIOXIDE LEVEL 27 MMOL/L (20-31); CHLORIDE LEVEL 100 MMOL/L (98-107); CREATININE FOR GFR 0.77 MG/DL (0.70-1.30); GLOMERULAR FILTRATION RATE > 60.0 (>56); GLUCOSE, FASTING 152 MG/DL (60-100); POTASSIUM SERUM 4.5 MMOL/L (3.5-5.1); SODIUM LEVEL 132 MMOL/L (136-145)
== END ==
LOC: M LABDRWAD 12:28
PROVIDERS: ATTEND Physician Assistant
DX: I70.612 Atherosclerosis of nonbiological bypass graft(s) of the extremities with intermittent claudication, left leg (principal); R79.1 Abnormal coagulation profile

== ENCOUNTER → 2024-04-20 | Outpatient (REF) | payer MEDICARE ==
[2024-04-20 14:28] LABS: BLOOD UREA NITROGEN 14 MG/DL (9-23); CALCIUM LEVEL 9.8 MG/DL (8.5-10.1); CARBON DIOXIDE LEVEL 29 MMOL/L (20-31); CHLORIDE LEVEL 99 MMOL/L (98-107); CREATININE FOR GFR 0.84 MG/DL (0.70-1.30); GLOMERULAR FILTRATION RATE > 60.0 (>56); GLUCOSE, FASTING 132 MG/DL (60-100); POTASSIUM SERUM 4.7 MMOL/L (3.5-5.1); SODIUM LEVEL 136 MMOL/L (136-145)
== END ==
LOC: M LABDRWAD 13:03
PROVIDERS: ATTEND Nurse Practitioner Family
DX: E11.65 Type 2 diabetes mellitus with hyperglycemia (principal)

== ENCOUNTER → 2024-09-13 | Outpatient (REF) | payer MEDICARE ==
[2024-09-13 14:46] LABS: HEMATOCRIT 34.6 % (42.0-52.0); HEMOGLOBIN 11.4 g/dl (13.5-17.5); MEAN CORPUSCULAR HEMOGLOBIN 31.1 pg (27.0-33.0); MEAN CORPUSCULAR HGB CONC 32.9 g/dl (32.0-36.5); MEAN CORPUSCULAR VOLUME 94.5 fl (80.0-96.0); PLATELET COUNT, AUTOMATED 138 10^3/uL (150-450); RED BLOOD COUNT 3.66 10^6/uL (4.30-6.10); WHITE BLOOD COUNT 4.7 10^3/uL (4.0-10.0)
[2024-09-13 14:55] LABS: PSA SCREENING 0.23 NG/ML (< 4.00)
[2024-09-13 14:59] LABS: ALBUMIN 4.4 G/DL (3.2-5.2); ALKALINE PHOSPHATASE 46 U/L (40-129); ALT/SGPT 29 U/L (7.0-40); AST/SGOT 27 U/L (<34); BILIRUBIN,TOTAL 0.5 MG/DL (0.3-1.2); BLOOD UREA NITROGEN 14 MG/DL (9-23); CALCIUM LEVEL 9.4 MG/DL (8.5-10.1); CARBON DIOXIDE LEVEL 29 MMOL/L (20-31); CHLORIDE LEVEL 105 MMOL/L (98-107); CHOLESTEROL LEVEL 162 MG/DL (<200); CHOLESTEROL RISK RATIO 3.13 (<5); CREATININE FOR GFR 0.86 MG/DL (0.70-1.30); GLOMERULAR FILTRATION RATE > 90.0 (>56); GLUCOSE, FASTING 146 MG/DL (60-100); HDL CHOLESTEROL 51.7 MG/DL (>40); LDL CHOLESTEROL 96.5 MG/DL (<100); NON-HDL-C 110.3 MG/DL; POTASSIUM SERUM 4.6 MMOL/L (3.5-5.1); SODIUM LEVEL 140 MMOL/L (136-145); THYROID STIMULATING HORMONE 2.337 uIU/ML (0.55-4.78); TOTAL PROTEIN 7.2 G/DL (5.7-8.2); TRIGLYCERIDES LEVEL 69 MG/DL (<150)
[2024-09-13 15:01] LABS: TESTOSTERONE 469 NG/DL (241-827)
[2024-09-13 15:03] LABS: HEMOGLOBIN A1c 6.5 % (4.0-6.0)
== END ==
LOC: M LABDRWAD 12:56
PROVIDERS: ATTEND Family Medicine
DX: I10 Essential (primary) hypertension (principal); R53.83 Other fatigue; E03.9 Hypothyroidism, unspecified; Z12.5 Encounter for screening for malignant neoplasm of prostate
CPT/HCPCS: 36415; 80053; 80061; 83036; 84403; 84443; 85027; G0103

== ENCOUNTER → 2025-01-14 | Outpatient (CLI) | payer MEDICARE ==
[~2025-01-14] MED LIST changes: -PRAV20TA2 PO; +PRAV20TA78 PO
[2025-01-14 14:12] LABS: ALT/SGPT 23 U/L (7.0-40); AST/SGOT 24 U/L (<34); CALCIUM LEVEL 9.3 MG/DL (8.5-10.1); CARBON DIOXIDE LEVEL 29 MMOL/L (20-31); CHLORIDE LEVEL 100 MMOL/L (98-107); CHOLESTEROL LEVEL 157 MG/DL (<200); CHOLESTEROL RISK RATIO 2.75 (<5); CREATININE FOR GFR 0.76 MG/DL (0.70-1.30); GLOMERULAR FILTRATION RATE > 90.0 (>56); IRON (FE) 111 UG/DL (65-175); LDL CHOLESTEROL 87.4 MG/DL (<100); NON-HDL-C 100.0 MG/DL; PERCENT SATURATION 31.6 % (19.7-50.0); POTASSIUM SERUM 4.7 MMOL/L (3.5-5.1); SODIUM LEVEL 136 MMOL/L (136-145); TRIGLYCERIDES LEVEL 63 MG/DL (<150)
[2025-01-14 14:13] LABS: TOTAL 25(OH) VITAMIN D 84.4 NG/ML (20.0-100.0)
[2025-01-14 14:15] LABS: VITAMIN B12 LEVEL > 2000 PG/ML (211-911)
[2025-01-14 14:16] LABS: PLATELET COUNT, AUTOMATED 162 10^3/uL (150-450)
== END ==
LOC: M PLALAB 09:14
PROVIDERS: ATTEND Family Medicine
DX: I73.9 Peripheral vascular disease, unspecified (principal); Z98.84 Bariatric surgery status; Z79.899 Other long term (current) drug therapy

== ENCOUNTER → 2025-02-25 | Outpatient (CLI) | payer MEDICARE | LOC: M RAD 08:04 | PROVIDERS: ATTEND Family Medicine | DX: R91.8 Other nonspecific abnormal finding of lung field (principal); I25.10 Atherosclerotic heart disease of native coronary artery without angina pectoris; I25.84 Coronary atherosclerosis due to calcified coronary lesion; F17.211 Nicotine dependence, cigarettes, in remission ==

== ENCOUNTER → 2025-03-17 | Outpatient (CLI) | payer MEDICARE ==
[~2025-03-17] MED LIST changes: +PROHANCE 279.3MG/ML 15ML VIAL ONE; +PROHANCE 279.3MG/ML 5ML VIAL ONE
== END ==
LOC: M PLAIMG 07:51
PROVIDERS: ATTEND Nurse Practitioner Family
DX: M96.1 Postlaminectomy syndrome, not elsewhere classified (principal); M47.816 Spondylosis without myelopathy or radiculopathy, lumbar region; M48.061 Spinal stenosis, lumbar region without neurogenic claudication
CPT/HCPCS: 72158; A9579